=== PATIENT | male | born 1930 | race Caucasian/White ===

== ENCOUNTER 2021-08-01 09:57 | Emergency (ER) | payer OTHER ==
[~2021-08-01] VITALS: Ht 167.6 cm; Wt 76.7 kg
--- NOTE | 2021-08-01 09:57 | NUR ---
PT [facility] 41 AND [employer] FROM HOME C/O SUICIDAL "HE CUT HIS LEFT WRIST AFTER ARGUMENT WITH THE " [employer] AT BEDSIDE FOR 5150, PT IS AAOX4, NOT IN RESPIRATORY DISTRESS, V/S STABLE, KEPT RESTED AND COMFORTABLE. WILL CONTINUE TO MONITOR.
[2021-08-01 10:20] LABS: BASOPHILS # (AUTO) 0.1 K/uL (0.0-0.2); BASOPHILS % (AUTO) 0.7 % (0.0-2.0); EOSINOPHILS % (AUTO) 0.6 % (0.0-6.0); HEMATOCRIT 41 % (39-51); HEMOGLOBIN 12.7 g/dL (13.5-17.5); LYMPHOCYTES # (AUTO) 0.6 K/uL (0.8-4.8); LYMPHOCYTES % (AUTO) 6.2 % (20.0-44.0); MEAN CORPUSCULAR HGB CONC 31 g/dl (31.0-36.0); MEAN CORPUSCULAR VOLUME 74 fL (80-96); MONOCYTES # (AUTO) 0.6 K/uL (0.1-1.30); MONOCYTES % (AUTO) 6.5 % (2.0-12.0); NEUTROPHILS # (AUTO) 7.7 K/uL (1.8-8.9); PLATELET COUNT (AUTO) 258 K/uL (150-450); RED BLOOD CELL COUNT(AUTO) 5.57 MIL/uL (4.5-6.0)
--- NOTE | 2021-08-01 10:25 | NUR ---
COVID TEST COLLECTED AND SENT
--- NOTE | 2021-08-01 10:25 | NUR ---
PT UNABLE TO PROVIDE URINE AT THIS TIME, URINAL PROVIDED AT BEDSIDE.
--- NOTE | 2021-08-01 11:12 | NUR ---
URINE COLLECTED AND SENT
[2021-08-01 11:23] LABS: ALANINE AMINOTRANSFERASE 14 U/L (12-78); ALBUMIN 3.7 g/dL (3.4-5.0); ALCOHOL, BLOOD < 3 mg/dL (0-0); ALKALINE PHOSPHATASE 83 U/L (46-116); ASPARTATE AMINOTRANSFERASE 16 U/L (15-37); BILIRUBIN,DIRECT 0.3 mg/dL (0.0-0.2); BILIRUBIN,TOTAL 0.9 mg/dL (0.2-1.0); CALCIUM, SERUM 8.8 mg/dL (8.5-10.1); CARBON DIOXIDE 25 mmol/L (21-32); CHLORIDE 99 mmol/L (98-107); CREATININE 0.9 mg/dL (0.6-1.3); GLUCOSE 137 mg/dL (74-106); SODIUM SERUM 135 mmol/L (136-145); TOTAL PROTEIN, SERUM 7.6 g/dL (6.4-8.2); UREA NITROGEN, BLOOD 10 mg/dL (7-18)
[2021-08-01 11:25] LABS: ACETAMINOPHEN 0 ug/ml (10-30)
--- NOTE | 2021-08-01 11:39 | NUR ---
CALLED [facility] AND SET UP CASE AND NOW AWAITING FOR CALL BACK FROM [facility]
--- NOTE | 2021-08-01 12:07 | NUR ---
[place] authorizing psychiatric evaluation [phone]
--- NOTE | 2021-08-01 12:33 | NUR ---
[facility] REQUIRES COVID RESULTS AND LABS BEFORE TRANSFER SET UP
[2021-08-01 12:57] LABS: BILIRUBIN,URINE NEGATIVE (NEGATIVE); COLOR,URINE YELLOW (YELLOW); LEUKOCYTE ESTERASE ,URINE NEGATIVE (NEGATIVE); NITRITE, URINE NEGATIVE (NEGATIVE); PH,URINE 7.5 (5.0-8.0); PROTEIN,URINE 30 mg/dl (NEGATIVE); UGLUCOSE NEGATIVE (NEGATIVE)
[2021-08-01] MEDS ORDERED: LOSA25TA27 PO (13:01)
[2021-08-01] MEDS ORDERED: PANT20TA17 PO (13:01)
[2021-08-01] MEDS ORDERED: LEVO50TA8 PO (13:01)
[2021-08-01] MEDS ORDERED: FERR325T23 PO (13:01)
[2021-08-01] MEDS ORDERED: LOVA10TA PO (13:01)
[2021-08-01] MEDS ORDERED: CITA20TA16 PO (13:01)
[2021-08-01 13:20] LABS: BACTERIA,URINE Rare /HPF (None Seen); RBC,URINE 0-2 /HPF (0-2); SQUAMOUS EPITHELIAL CELL,UR Rare /HPF (None Seen); WBC,URINE 0-2 /HPF (0-3)
--- NOTE | 2021-08-01 13:25 | NUR ---
CALL FROM [facility], WILL ENDORSE CASE TO BED FINDERS
--- NOTE | 2021-08-01 14:00 | NUR ---
FAXED CLINICALS TO [facility] AT [phone]
--- NOTE | 2021-08-01 15:24 | NUR ---
SPOKE WITH [facility] NOTE SPECIALIST. TRYING TO FIND PLACEMENT FOR PT, THEY WILL CALL BACK TO FOLLOW UP.
--- NOTE | 2021-08-01 15:48 | NUR ---
SPOKE TO AM[facility] MCKINNEY MOTORCYCLE TECHNICIAN, PT HAS BEEN ACCEPTER TO [facility] UNDER THE CARE OF DR MIQUEL MCMAHON, [phone]. THEY WILL BE PROVIDING TRANSPORTATION ETA OF [phone]
--- NOTE | 2021-08-01 16:27 | NUR ---
REPORT GIVEN TO [facility] FOR [facility]
[2021-08-01] MEDS ORDERED: OLANZAPINE 10 MG VIAL IM ONE (16:30)
--- NOTE | 2021-08-01 17:01 | NUR ---
[facility] ARRIVED TO TRANSPORT PT, REPORT GIVEN TO [facility], PT TRANSFERRED IN STABLE CONDITION
[2021-08-01 17:07] VITALS: BP 103/67
== END 2021-08-01 17:09 ==
LOC: ER 09:59
DX: S61.512A Laceration without foreign body of left wrist, initial encounter (principal); X78.9XXA Intentional self-harm by unspecified sharp object, initial encounter; Y92.019 Unspecified place in single-family (private) house as the place of occurrence of the external cause; F32.A Depression, unspecified; I10 Essential (primary) hypertension; Z20.822 Contact with and (suspected) exposure to COVID-19
CPT/HCPCS: 36415; 80048; 80076; 80143; 80307; 80320; 81001; 85025; 87426; 99285; C9803; G0480